=== PATIENT | female | born 1935 | race Caucasian/White ===

== ENCOUNTER → 2018-05-25 | Outpatient (CLI) | payer MEDICARE ==
[~2018-05-25] MED LIST: AMLO5TAB7 PO; ASPI81TA50 PO; FENO134C PO; METO200T46 PO; OMEP20TA63 PO; RAMI10CA53 PO; SPIR25TA5 PO
[2018-05-25 13:14] LABS: BASO % 1 % (0-3); EOS % 1 % (0-3); HEMATOCRIT 29.1 % (36.0-47.0); HEMOGLOBIN 9.9 g/dL (12.0-15.5); LYMPH # 1.3 x10^3/uL (1.0-4.8); LYMPH % 27 % (24-48); MEAN CORPUSCULAR HEMOGLOBIN 31 pg (25-35); MEAN CORPUSCULAR HGB CONC 34 g/dL (31-37); MEAN CORPUSCULAR VOLUME 90 fL (79-100); MONO # 0.3 x10^3/uL (0.0-1.1); MONO % 6 % (0-9); NEUT # 3.1 x10^3uL (1.8-7.7); NEUT % 66 % (31-73); PLATELET COUNT 263 x10^3/uL (140-400); RED BLOOD COUNT 3.25 x10^6/uL (3.50-5.40); RED CELL DISTRIBUTION WIDTH 17.2 % (11.5-14.5); WHITE BLOOD COUNT 4.8 x10^3/uL (4.0-11.0)
[2018-05-25 13:36] LABS: ALBUMIN 2.9 g/dL (3.4-5.0); CALCIUM 8.9 mg/dL (8.5-10.1); CREATININE 1.8 mg/dL (0.6-1.0); GFR 26.9; TOTAL BILIRUBIN 3.5 mg/dL (0.2-1.0)
== END | disposition home or self-care (01) ==
LOC: SURGPAT 11:44
PROVIDERS: ATTEND Surgery
DX: Z01.818 Encounter for other preprocedural examination (principal); K80.20 Calculus of gallbladder without cholecystitis without obstruction; Z88.0 Allergy status to penicillin
CPT/HCPCS: 36415; 80048; 82040; 82247; 85025

== ENCOUNTER 2021-02-22 11:02 | Emergency (ER) | payer MEDICARE ==
[~2021-02-22] VITALS: Ht 154.9 cm; Wt 39.0 kg
[~2021-02-22 11:02] MED LIST changes: +AMLO-186 PO; -AMLO5TAB7 PO
--- NOTE | 2021-02-22 13:08 | PHYS DOC ---
Past Medical History Past Medical History: High Cholesterol, Hypertension Additional Past Medical Histor: BACK PAIN, "FAST HEART RATE", "KIDNEY DISEASE" Past Surgical History: Cholecystectomy Additional Past Surgical Histo: "BROKE HIP W/ HIP SX." "SKIN CA SX" Smoking Status: Former Smoker General Adult EDM: Chief Complaint: ALTERED MENTAL STATUS HPI: HPI: Patient is a 85 year old female with a history of hypertension, high cholestero l, who presents to the ED today to be evaluated for altered mental status. Patient is in the ED with a sister who states she received a phone call around 10 AM from patient's daughter holly and was informed patient is not acting herself. She went and saw patient and she was not talking like Normal self. Patient's sister states patient was started on a muscle relaxer 5 mg on for back pain. She also states patient has a redness on her face. Review of Systems: Review of Systems: Constitutional: Denies fever or chills. [] Eyes: Denies change in visual acuity. [] HENT: Denies nasal congestion or sore throat. [] Respiratory: Denies cough or shortness of breath. [] Cardiovascular: Denies chest pain or edema. [] GI: Denies abdominal pain, nausea, vomiting, bloody stools or diarrhea. [] : Denies dysuria. [] Musculoskeletal: Denies back pain or joint pain. [] Integument: Reports rash on the face Neurologic: Reports altered mental status. Denies headache, focal weakness or sensory changes. [] Psychiatric: Denies depression or anxiety. [] Heart Score: C/O Chest Pain: N/A Risk Factors: Risk Factors: DM, Current or recent (<one month) smoker, HTN, HLP, family history of CAD, obesity. Risk Scores: Score 0 - 3: 2.5% MACE over next 6 weeks - Discharge Home Score 4 - 6: 20.3% MACE over next 6 weeks - Admit for Clinical Observation Score 7 - 10: 72.7% MACE over next 6 weeks - Early Invasive Strategies Allergies: Allergies: Allergies Coded Allergies Type Severity Reaction Last Updated Verified Penicillins Allergy Intermediate Rash 05/31/18 Yes Physical Exam: PE: Constitutional: Well developed, well nourished, no acute distress, non-toxic appearance. [] HENT: Normocephalic, atraumatic, bilateral external ears normal, oropharynx moist, no oral exudates, nose normal. [] Eyes: PERRLA, EOMI, conjunctiva normal, no discharge. [] Neck: Normal range of motion, no tenderness, supple, no stridor. [] Cardiovascular:Heart rate regular rhythm, no murmur [] Lungs & Thorax: Bilateral breath sounds clear to auscultation [] Abdomen: Bowel sounds normal, soft, no tenderness, no masses, no pulsatile masses. [] Skin: Warm, dry, redness noted on the cheeks Back: No tenderness, no CVA tenderness. [] Extremities: No tenderness, no cyanosis, no clubbing, ROM intact, no edema. [] Neurologic: Alert and oriented X 3, normal motor function, normal sensory function, no focal deficits noted. Cranial nerves II through XII intact Psychologic: Affect normal, judgement normal, mood normal. [] Current Patient Data: Vital Signs: Vital Signs Date Time Temp Pulse Resp B/P (MAP) Pulse Ox O2 Delivery O2 Flow Rate FiO2 02/22/21 12:49 98.4 83 16 227/102 (59) 97 Room Air 98.4 EKG: EK interpreted by Dr. Gonzalez sinus rhythm heart rate 88 no STEMI Radiology/Procedures: Radiology/Procedures: []PROCEDURE: CT HEAD WO CONTRAST EXAM: CT Head without IV contrast CLINICAL HISTORY: Altered mental status COMPARISON: None. TECHNIQUE: Routine CT of the head without contrast. PQRS compliance statement - One or more of the following individualized dose reduction techniques were utilized for this study: 1. Automated exposure control 2. Adjustment of the mA and/or kV according to patient size 3. Use of iterative reconstruction technique FINDINGS: There is no evidence of hemorrhage, mass or extra-axial fluid collection. Rosales-white differentiation is maintained with no evidence of edema. Subcortical, periventricular as well as deep white matter foci of hypoattenuation likely ch anges of chronic small vessel disease. Pleural-based calcifications are seen. There is no mass effect or shift of the intracranial structures. The ventricles, basilar cisterns and cortical sulci are normal in size and configuration for the patients stated age. The cerebellum and brainstem are unremarkable. The calvarium demonstrates no evidence of fracture or focal lesion. There is normal aeration of the visualized paranasal sinuses and mastoid air cells. The visualized portions of the orbits are normal. Atherosclerotic calcifications of the intracranial internal carotid and vertebral arteries is seen. IMPRESSION: 1. No evidence for acute intracranial process. 2. White matter changes, likely chronic small vessel disease. Electronically signed by: Trevor Sandoval MD (02/22/2021 1:58 PM) [facility] DICTATED and SIGNED BY: TREVOR SANDOVAL MD DATE: 02/22/21 [id number] PROCEDURE: PORTABLE CHEST 1V EXAM: XR CHEST 1V 02/22/2021 1:02 PM CLINICAL INDICATION: Altered mental status COMPARISON: None TECHNIQUE: AP view of the chest FINDINGS: The heart is normal in size. The right hilum is prominent. There are surgical clips and suture material in the right perihilar region. There are calcified granulomas in the left lung. No focal consolidation, pleural effusion, or pneumothorax. Cholecystectomy clips are noted. IMPRESSION: 1. No acute abnormality. 2. Prominent right hilum with adjacent surgical clips and suture material. Electronically signed by: Mine Deluna MD (02/22/2021 1:20 PM) [id number] DICTATED and SIGNED BY: MINE DELUNA MD DATE: 02/22/21 [id number] Course & Med Decision Making: Course & Med Decision Making Pertinent Labs and Imaging studies reviewed. (See chart for details) This is a 85-year-old female patient presented to the ED today to be evaluated for altered mental status that was noted this morning. Patient is answering her orientation questions correctly but seem to be mean which the sister states this is not normal. Sister also states patient has a redness on the face CT of the head is negative for any acute findings. Chest x-ray is negative for any acute findings. CBC with a normal WBC, hemoglobin 9.7 hematocrit 28.2. Glucose 270 sodium 130, sodium corrected for glucose is 134, positive for UTI. Creatinine 2.0 with BUN of 27 hx of kidney disease BNP is 6287, and unknown history of CHF but known history of kidney failure. Patient still voids. Was put on furosemide patient was offered admission, patient and sister refused, discharged on Cipro first dose given in the ED for UTI. Instructed to follow-up with the PCP Cristian Disclaimer: Cristian Disclaimer: This electronic medical record was generated, in whole or in part, using a voice recognition dictation system. Departure Departure Impression: Primary Impression: Chronic kidney failure Qualified Codes: N18.9 - Chronic kidney disease, unspecified Additional Impressions: Urinary tract infection Qualified Codes: N39.0 - Urinary tract infection, site not specified AMS (altered mental status) Qualified Codes: R41.82 - Altered mental status, unspecified Disposition: 01 HOME / SELF CARE / HOMELESS Condition: STABLE Referrals: ELISABETH GALE D.O. (PCP) follow up next week Patient Instructions: Altered Mental Status, Urinary Tract Infection Additional Instructions: You have urinary tract infection, please take the prescribed antibiotics until completed. We will also put you on furosemide for the extra fluid showing up on your work-up. Take it as ordered and follow-up with your primary care doctor next week Scripts Furosemide (FUROSEMIDE) 20 Mg Tablet 1 TAB PO DAILY, #4 TAB 1 Refill Prov: NALDO GARCIA APRN 02/22/21 Ciprofloxacin Hcl (CIPRO) 250 Mg Tablet 1 TAB PO BID for 7 Days, #14 TAB 0 Refills Prov: NALDO GARCIA APRN 02/22/21 NALDO GARCIA APRN Feb 22, 2021 13:08
--- NOTE | 2021-02-22 13:23 | RAD ---
EXAM: XR CHEST 1V 02/22/2021 1:02 PM CLINICAL INDICATION: Altered mental status COMPARISON: None TECHNIQUE: AP view of the chest FINDINGS: The heart is normal in size. The right hilum is prominent. There are surgical clips and magallon ture material in the right perihilar region. There are calcified granulomas in the left lung. No foca l consolidation, pleural effusion, or pneumothorax. Cholecystectomy clips are noted. IMPRESSION: 1. No acute abnormality. 2. Prominent right hilum with adjacent surgical clips and suture material. Electronically signed by: Mine Deluna MD (02/22/2021 1:20 PM) [id number]
[2021-02-22 13:53] LABS: BASO % 0 % (0-3); EOS % 0 % (0-3); HEMATOCRIT 28.2 % (36.0-47.0); HEMOGLOBIN 9.7 g/dL (12.0-15.5); LYMPH # 0.2 x10^3/uL (1.0-4.8); LYMPH % 2 % (24-48); MEAN CORPUSCULAR HEMOGLOBIN 34 pg (25-35); MEAN CORPUSCULAR HGB CONC 34 g/dL (31-37); MEAN CORPUSCULAR VOLUME 99 fL (79-100); MONO # 0.6 x10^3/uL (0.0-1.1); MONO % 7 % (0-9); NEUT # 7.6 x10^3/uL (1.8-7.7); NEUT % 90 % (31-73); PLATELET COUNT 149 x10^3/uL (140-400); RED BLOOD COUNT 2.85 x10^6/uL (3.50-5.40); RED CELL DISTRIBUTION WIDTH 13.6 % (11.5-14.5); WHITE BLOOD COUNT 8.4 x10^3/uL (4.0-11.0)
--- NOTE | 2021-02-22 14:00 | RAD ---
EXAM: CT Head without IV contrast CLINICAL HISTORY: Altered mental status COMPARISON: None. TECHNIQUE: Routine CT of the head without contrast. PQRS compliance statement - One or more of the following individualized dose reduction techniques wer e utilized for this study: 1. Automated exposure control 2. Adjustment of the mA and/or kV according to patient size 3. Use of iterative reconstruction technique FINDINGS: There is no evidence of hemorrhage, mass or extra-axial fluid collection. Rosales-white differentiation is maintained with no evidence of edema. Subcortical, periventricular as w ell as deep white matter foci of hypoattenuation likely changes of chronic small vessel disease. Pleu ral-based calcifications are seen. There is no mass effect or shift of the intracranial structures. The ventricles, basilar cisterns and cortical sulci are normal in size and configuration for the chiquita ents stated age. The cerebellum and brainstem are unremarkable. The calvarium demonstrates no evidence of fracture or focal lesion. There is normal aeration of the visualized paranasal sinuses and mastoid air cells. The visualized portions of the orbits are normal. Atherosclerotic calcifications of the intracranial internal carotid and vertebral arteries is seen. IMPRESSION: 1. No evidence for acute intracranial process. 2. White matter changes, likely chronic small vessel disease. Electronically signed by: Trevor Sandoval MD (02/22/2021 1:58 PM) ANGELINE
[2021-02-22 14:06] LABS: CALCIUM 9.6 mg/dL (8.5-10.1); GFR 23.7; POTASSIUM 4.5 mmol/L (3.5-5.1)
[2021-02-22 14:12] LABS: ALBUMIN 3.3 g/dL (3.4-5.0); ALBUMIN/GLOBULIN RATIO 0.9 (1.0-1.7); MAGNESIUM 1.8 mg/dL (1.8-2.4); TOTAL BILIRUBIN 1.4 mg/dL (0.2-1.0)
[2021-02-22 14:20] LABS: % LYMPHS 4 % (24-48); % MONOS 8 % (0-10); % SEGS 88 % (35-66)
[2021-02-22 14:21] LABS: PLT ESTIMATE ADEQUATE (ADEQUATE)
[2021-02-22 15:17] LABS: BILIRUBIN,URINE NEGATIVE (NEG); CLARITY,URINE CLOUDY; COLOR,URINE YELLOW; NITRITE,URINE NEGATIVE (NEG); PH,URINE 6.5 (<5.0-8.0); PROTEIN,URINE >=300 mg/dL (NEG-TRACE)
[2021-02-22 15:25] LABS: BARBITURATES NEG (NEG); BENZODIAZEPINES NEG (NEG); CANNABINOIDS NEG (NEG); COCAINE NEG (NEG); METHADONE NEG (NEG); OPIATES NEG (NEG); PHENCYCLIDINE NEG (NEG)
[2021-02-22 15:26] LABS: HYALINE CASTS, URINE MODERATE /HPF
[2021-02-22 15:27] LABS: AMORPHOUS SEDIMENT,UR PRESENT /HPF; AMPHETAMINE/METHAMPHETAMINE NEG (NEG); BACTERIA,URINE 0 /HPF (0-FEW); WBC,URINE TNTC /HPF (0-4)
[2021-02-22] MEDS ORDERED: CIPROFLOXACIN 400MG PREMIX 200 ML IV ONE (16:30)
[2021-02-22] MEDS ORDERED: METOPROLOL TART IMMED RELEASE 25 MG TABLET. PO ONE (16:30)
[2021-02-22] MEDS ORDERED: FURO20TA3 PO ×2 (17:12→17:19)
[2021-02-22] MEDS ORDERED: CIPR250T30 PO ×2 (17:12→17:19)
[2021-02-22 18:15] VITALS: BP 201/100
--- NOTE | 2021-02-23 03:48 | EKG ---
[facility] [address] [place] [address] Test Date: 2021-02-22 Test Time: 13:15:21 Pat Name: RENETTA PAREDES Department: Room: Gender: F [employer]: : [id number] Requested By: NALDO GARCIA Order Number: [id number] Reading MD: Measurements Intervals [place] Rate: 88 P: 20 PA: 152 QRS: -16 QRSD: 76 T: 64 QT: 344 QTc: 420 Interpretive Statements SINUS RHYTHM LEFTWARD AXIS NO SPECIFIC ECG ABNORMALITIES RI6.02 No previous ECG available for comparison
== END 2021-02-22 18:29 | disposition home or self-care (01) ==
LOC: ER 11:02
DX: R41.82 Altered mental status, unspecified (principal); N39.0 Urinary tract infection, site not specified; I12.9 Hypertensive chronic kidney disease with stage 1 through stage 4 chronic kidney disease, or unspecified chronic kidney disease; N18.9 Chronic kidney disease, unspecified; E78.00 Pure hypercholesterolemia, unspecified; Z87.891 Personal history of nicotine dependence; Z88.0 Allergy status to penicillin
CPT/HCPCS: 36415; 70450; 71045; 80053; 80307; 81001; 82550; 83735; 83880; 84145; 84443; 84484; 85007; 85025; 87040; 87086; 93005; 96365; 96366; 99285; J0744